=== PATIENT | male | born 1950 | race Caucasian/White ===

== ENCOUNTER 2018-01-07 21:01 | Inpatient (IN) | payer MEDICARE ==
[~2018-01-07 21:01] MED LIST: ISOVUE-370 76%-LOCM 1 ML ONE
--- NOTE | 2018-01-07 21:34 | RAD ---
UPRIGHT PORTABLE CHEST ONE VIEW: 01/07/18 HISTORY: 67-year-old male with history of weakness and fever, slipped off toilet. COMPARISON: 10/02/13. FINDINGS: There is some rotation to the left. Slight blunting to both costophrenic angles. No confluent pneumon ia or overt edema. IMPRESSION: Borderline sized heart with stable appearing blunted costophrenic angles. No confluent pneumonia, ove rt edema, or pleural effusion or other significant new process. POS: [facility]
[2018-01-07 21:53] LABS: Lymphocytes 15 % (21-51); MDiff Complete? YES; Mean Corpuscular HGB CONC 35.1 g/dL (32.0-36.0); Mean Corpuscular Hemoglobin 34.4 pg (27.0-31.0); Mean Corpuscular Volume 98.1 fL (78.0-98.0); Mean Platelet Volume 8.3 fL (7.4-10.4); Monocytes 10 % (0-10); Neutrophil 75 % (42-75); PLT Morphology Comment Appears Adequate; Platelet Count 181 thou/uL (130-400); RBC Distribution Width 12.5 % (11.5-14.5); Red Blood Cell (RBC) Count 4.64 mill/uL (4.70-6.10); White Blood Cell (WBC) Count 15.2 thou/uL (4.8-10.8)
[2018-01-07 21:55] LABS: ALT (SGPT) 24 U/L (8-55); AST (SGOT) 19 U/L (5-34); Albumin 3.8 g/dL (3.4-4.8); Alkaline Phosphatase 61 U/L (40-150); Anion Gap 17 mmol/L (10-20); BUN (Urea Nitrogen) 16 mg/dL (8.4-25.7); Bilirubin, Total 1.1 mg/dL (0.2-1.2); CK (CPK) 85 U/L (30-200); Calc. Creatinine Clearance 0 mL/min (70-130); Calcium 9.7 mg/dL (7.8-10.44); Carbon Dioxide 23 mmol/L (23-31); Chloride 100 mmol/L (98-107); Estimated GFR-MDRD 55; Globulin 3.3 g/dL (2.4-3.5); Glucose 207 mg/dL (80-115); Protein, Total 7.1 g/dL (5.8-8.1); Sodium 136 mmol/L (136-145)
[2018-01-07 22:05] LABS: CKMB 0.7 ng/mL (0-6.6); Troponin I Less than 0.010 ng/mL (< 0.028)
[2018-01-07] MEDS ORDERED: Piperacillin/Tazobactam 4.5 GM VIAL ONE (22:15)
[2018-01-07] MEDS ORDERED: Sodium Chloride 0.9% 100 ML ONE (22:15)
[2018-01-07] MEDS ORDERED: Fentanyl 100 MCG/2 ML VIAL ONE (22:15)
--- NOTE | 2018-01-07 22:56 | CT ---
CT ARTERIOGRAM CHEST WITH IV CONTRAST AND 3D MIP IMAGIN01/07/18 HISTORY: Chest pain. Dyspnea. FINDINGS: There is good contrast opacification of pulmonary arteries and thoracic aorta with normal branching o f the great vessels. Small amount of right pleural fluid with bibasilar atelectasis. No pneumothorax or lobar consolidation. Calcified mediastinal lymph nodes are consistent with healed granulomatous di sease. IMPRESSION: No CT evidence of pulmonary embolus. Small right pleural effusion. Cause is not apparent. POS: [facility]
--- NOTE | 2018-01-07 23:00 | CT ---
CT ABDOMEN AND PELVIS WITH IV CONTRAST 01/07/18 HISTORY: Abdominal pain. Fever. FINDINGS: No comparison. Small amount of right pleural fluid and bibasilar atelectasis are again demonstrated. Hyperdense stones within the dependent portion of the gallbladder lumen. Calcifications are present w ithin nondilated calyces of each kidney. There are two on the right measuring up to 0.5 cm greatest d iameter. At least four on the left measure up to 0.4 cm. No evidence of urinary tract obstruction. Diverticula arise from the colon without adjacent inflammation. Postoperative changes of the right co oscar are evident. No free air or free fluid. Urinary bladder is decompressed. IMPRESSION: Nonobstructing bilateral renal calculi. Diverticulosis. No evidence of diverticulitis. Postoperative changes of the colon. Cholelithiasis. Small right pleural effusion. Bibasilar lung atelectasis. POS: [facility]
[2018-01-07 23:32] LABS: Bilirubin Negative (Negative); Blood, Urine Negative (Negative); Clarity CLEAR (Clear); Glucose, Urine (Dipstick) 500 mg/dL (Negative); Leukocyte Negative (Negative); Nitrite Negative (Negative); Protein, Urine (Dipstick) 100 mg/dL (Neg-Trace); Specific Gravity, Urine 1.029 (1.002-1.036); Urobilinogen 0.2 mg/dL (0.2-1.0)
[2018-01-07 23:35] LABS: Bacteria/HPF None Seen HPF (None Seen); Hyaline Casts/LPF 7-10 HYALINE CAST LPF (0-3 Hyaline); RBC/HPF 0-3 HPF (0-3); Squamous Epithelial 0-3 HPF (0-3)
[2018-01-07 23:47] LABS: Oval Fat Bodies/HPF None Seen HPF (None Seen); Renal Epithelial None Seen HPF (0-3); Sperm/HPF None Seen HPF (None Seen); Transitional Epithelial NONE SEEN HPF (0-3); Trichomonas/HPF None Seen HPF (None Seen); Yeast-All Forms None Seen HPF (None Seen)
[2018-01-07] MEDS ORDERED: Vancomycin HCl 1.5 GM in Sodium Chloride 0.9% 250 ML 300 ML IVPB SCH (23:59)
[2018-01-08 00:23] LABS: Base Excess-Venous -1.5 mmol/L (0 (+/- 2.5)); CO2 Tension (PvCO2) 37.3 mmHg (41.0-51.0); Calcium, Ionized 1.15 mmol/L (1.12-1.32); Hemoglobin - Calc 16.1 g/dL (12.0-18.0); O2 Tension (PvO2) 79.7 mmHg (35.0-45.0); Potassium 3.7 mmol/L (3.4-4.7); T. Carbon Dioxide 24.1 mmol/L (1.0-85.0); pH (Venous) 7.397 (7.35-7.45); vO2 Saturation-calc 95.7 % (94-98)
[2018-01-08] MEDS ORDERED: Senokot 8.6 MG TAB PO PRN (00:59)
[2018-01-08] MEDS ORDERED: Ondansetron HCl/PF 4 MG/2 ML Vial IVP PRN (00:59)
[2018-01-08] MEDS ORDERED: Bisacodyl 5 MG TAB PO PRN (00:59)
[2018-01-08] MEDS ORDERED: Ondansetron ODT 4 MG TAB PO PRN (00:59)
[2018-01-08] MEDS ORDERED: Enoxaparin Sodium 40 MG/0.4 ML SYRINGE SC SCH (01:00)
[2018-01-08] MEDS ORDERED: Insulin Regular 300 UNITS/3 ML VIAL SC PRN (01:05)
[2018-01-08] MEDS ORDERED: Dextrose 5% in Water 1,000 ML IV PRN (01:05)
[2018-01-08] MEDS ORDERED: Dextrose 50% Abboject 50 ML SYRINGE SLOW IVP PRN (01:05)
[2018-01-08 01:15] LABS: Lactic Acid 3.1 mmol/L (0.5-2.2)
[2018-01-08 03:28] VITALS: BMI 31.4
[2018-01-08] MEDS: Sodium Chloride 0.9% 1,000 ML IV SCH ×3 (03:49→21:55)
[2018-01-08 04:14] LABS: Anion Gap 15 mmol/L (10-20); BUN (Urea Nitrogen) 17 mg/dL (8.4-25.7); Band 1 % (5-11); Calc. Creatinine Clearance 84 mL/min (70-130); Carbon Dioxide 22 mmol/L (23-31); Chloride 102 mmol/L (98-107); Estimated GFR-MDRD 60; Glucose 217 mg/dL (80-115); Hemoglobin 13.8 g/dL (14.0-18.0); Lymphocytes 16 % (21-51); MDiff Complete? YES; Mean Corpuscular HGB CONC 34.3 g/dL (32.0-36.0); Mean Corpuscular Hemoglobin 33.9 pg (27.0-31.0); Mean Corpuscular Volume 98.7 fL (78.0-98.0); Monocytes 6 % (0-10); Neutrophil 77 % (42-75); PLT Morphology Comment Appears Adequate; Platelet Count 149 thou/uL (130-400); RBC Distribution Width 12.6 % (11.5-14.5); Red Blood Cell (RBC) Count 4.08 mill/uL (4.70-6.10); Sodium 135 mmol/L (136-145); White Blood Cell (WBC) Count 17.3 thou/uL (4.8-10.8)
[2018-01-08] MEDS: Acetaminophen 325 MG TAB PO PRN ×4 (04:59→17:54)
[2018-01-08] MEDS: Piperacillin/Tazobactam 3.375 GM in Sodium Chloride 0.9% 100 ML IVPB SCH ×4 (05:00→20:26)
[2018-01-08] MEDS ORDERED: ISOVUE-370 76%-LOCM 1 ML ONE (07:35)
[2018-01-08] MEDS ORDERED: Gadobenate Dimeglumine 529 MG/1 ML (20ML VIAL) ONE (07:35)
--- NOTE | 2018-01-08 07:38 | HP ---
CHIEF COMPLAINT: Epigastric pain that radiates to the left upper quadrant and right upper quadrant and to the back. HISTORIAN: The patient's and patient. HISTORY OF PRESENT ILLNESS: This is a 67-year-old white male with past medical history of colon cancer in the past; diabetes mellitus, type 2; hypertension; hyperlipidemia; presenting with epigastric abdominal pain that radiates to the left upper quadrant and right upper quadrant and to his back. Per the patient, this pain has been going on for the past 2-3 days and that has progressively gotten worse and that prompted the ED visit. The patient states that he felt very weak due to the pain, and when he was in the bathroom, he syncopized due to weakness. EMS was called, and the patient was then brought to the emergency room. Upon further questioning, the patient stated that the pain was constant in nature, 8/10, and he took Advil to help with the pain, but it did not help or did not alleviate his pain. REVIEW OF SYSTEMS: Positive for pain, some shortness of breath, back pain, subjective fever; otherwise, as documented in the HPI. All other systems were reviewed and are negative. PAST MEDICAL HISTORY: Significant for diabetes mellitus, type 2; hypertension; colon CA; hyperlipidemia. PAST SURGICAL HISTORY: Hernia. SOCIAL HISTORY: Patient is a current tobacco smoker. He chews tobacco. Patient denies drinking alcohol. The patient denies any illicit drug use. FAMILY HISTORY: Reviewed and noncontributory. KNOWN ALLERGIES: No known drug allergies. MEDICATIONS: Patient takes, 1. Metformin 500. 2. Pravastatin 40 mg p.o. daily. 3. Sertraline 50 mg. 4. Amlodipine 5 mg. 5. Irbesartan 300 mg. PHYSICAL EXAMINATION: VITAL SIGNS: Currently, the patient's blood pressure is 137/74, pulse 116, respiratory rate of 22, O2 sat of 93 on 2-liter oxygen. GENERAL APPEARANCE: The patient appears very anxious, appears uncomfortable due to pain; however, the patient is not in any acute distress. HEENT: Normocephalic, atraumatic. Pupils are equal, round, and reactive to light. Extraocular movements are intact. No scleral icterus. NECK: Supple. Trachea midline. No tracheal deviations. LUNGS: Clear to auscultation bilaterally. No wheezing, no rhonchi, no rales appreciated. Patient does have discomfort with palpation under epigastric region, especially underneath the diaphragm. CARDIAC: Sinus tachycardic. ABDOMEN: The patient has diffuse tenderness to palpation, worse at the left lower quadrant and epigastric region. No rebound. Positive bowel sounds in all quadrants. BACK: The patient does have tenderness with palpation at the thoracic spine. EXTREMITIES: Upper extremities and lower extremities, 5/5 upper extremities strength and lower extremities strength. Good pulses. Capillary refills are less than 2 seconds. ED COURSE: The patient was given vancomycin IV, Zosyn IV, fentanyl for pain, and sodium chloride. IMAGING: CT of the abdomen and pelvis showed nonobstructing bilateral renal calculi, diverticulosis, no evidence of diverticulitis. Postoperative changes of the colon, cholelithiasis, small right pleural effusion, right basilar lung atelectasis. Chest x-ray, borderline-sized heart with stable-appearing blunted costophrenic angles. No confluent pneumonia or read edema or pleural effusion or other significant new process. CTA of the chest, no CT evidence of pulmonary embolism, small right pleural effusion. LABORATORY DATA: WBC in the ED 15.2, hemoglobin 16.0, hematocrit is 45.5, MCV 98.1, RDW is 12.5, lymphocytes 15, neutrophils 75. Sodium 135, potassium 4.0, chloride 104, carbon dioxide 22, BUN 17, creatinine 1.20, glucose 217. Lactic acid 3.6, AST 19, ALT 24, T bilirubin is 1.1. BNP 18. Urinalysis negative. ASSESSMENT AND PLAN: This is a 67-year-old male, being admitted for: 1. Abdominal pain, etiology unclear at this time. At this point, patient meets sepsis criteria. Patient has a lactic acid of 3.6, leukocytosis of 15.2, and the patient is tachycardic. We will start the patient on vancomycin, Zosyn , IV fluids. We will continue patient on these antibiotics, and we will follow up on morning laboratories and we will continue to work the patient up for source of infection. 2. Thoracic back pain. Upon further review of the abdominal CT, I see that patient did have some disk degenerative changes concerning for possible diskitis , probably causing the patient to have transverse myelitis. At this point, due to the concern, we have called the radiologist who read the image and discussed with the radiologist. Per radiologist, it does not seem that this is a chronic osteomyelitis. However, he feels like it is based on patient's clinical presentation with a possibility that this can be diskitis, but further imaging will be necessary to catch a possible diskitis. Also, due to the fact the patient has a history of colon carcinoma and a pleural effusion seen on imaging , it is a little concerning that the patient did have this 8/10 thoracic spine pain, and due to this, we will get an MRI of the thoracic spine to further examine the thoracic spine. It will be also important to at least get a thoracentesis to examine the pleural effusion to see if there is a possibility of exudative fluid concerning for possible malignancy, but we will continue to work the patient up and follow up on morning laboratories and cultures. 3. History of hypertension. We will continue to monitor the patient's blood pressure. Continue current management. 4. Diabetes mellitus. We will continue sliding scale. Continue to monitor the patient closely. 5. History of hyperlipidemia. We will continue the patient on his home medications. 6. Deep vein thrombosis and gastrointestinal prophylaxis. MTDD
[2018-01-08] MEDS ORDERED: Famotidine/PF 20 mg/2ml Vial SLOW IVP SCH (09:00)
[2018-01-08] MEDS ORDERED: Heparin 1,000 UNITS/ML VIAL ONE (09:00)
[2018-01-08] MEDS: Vancomycin HCl 1.25 GM in Sodium Chloride 0.9% 250 ML 250 ML IVPB SCH ×2 (12:37→23:57)
--- NOTE | 2018-01-08 12:40 | PDOC.EVN ---
Event Note - Event Note Event Note: Records reviewed. Patient examined. Has some TTP in LLQ with equivocal rebound. MRI of Tspine pending. Has chronic pain in this area. Unclear at this point if it a source of infection or if it is just more painful now because of underlying infection and fever. No other source identified. Concerned about possible early diverticulitis, but on appropriate abx.
--- NOTE | 2018-01-08 14:01 | MRI ---
MRI THORACIC SPINE WITH AND WITHOUT CONTRAST: DATE: 01/08/18. COMPARISON: None. HISTORY: Back pain, history of colon cancer, mid back pain radiating posteriorly. TECHNIQUE: Multiplanar, multisequence MR imaging of the thoracic spine is obtained with and without contrast. FINDINGS: The STIR imaging demonstrates no focal area of osseous marrow edema. There is abnormal increased STI R signal associated with the lateral paraspinal soft tissues at the axial level of the T4 through T6 vertebral bodies. No anterolisthesis or retrolisthesis is noted within the thoracic spine. C7-T1: No significant central canal or neural foraminal stenosis. T1-2: Mild bilateral facet hypertrophy with no significant central canal or neural foraminal stenosi s. T2-3: Mild bilateral facet hypertrophy with no significant central canal or neural foraminal stenosi s. T3-4: Mild bilateral facet hypertrophy with no significant central canal or neural foraminal stenosi s. T4-5: Mild facet hypertrophy with no significant central canal or neural foraminal stenosis. T5-6: No significant central canal or neural foraminal stenosis. T6-7: No significant central canal or neural foraminal stenosis. T7-8: Anterior osteophyte formation. No significant central canal or neural foraminal stenosis. T8-9: Anterior osteophyte formation on the right with no central canal or neural foraminal stenosis. T9-10: Anterior osteophyte formation on the right with no central canal or neural foraminal stenosis . T10-11: Anterior osteophyte formation on the right with no significant central canal or neural benjamin inal stenosis. T11-12: Bilateral facet hypertrophy noted, right greater than left. No significant central canal or neural foraminal stenosis. Anterior right-sided osteophyte formation. T12-L1: No significant central canal or neural foraminal stenosis. Postcontrast imaging demonstrates incompletely visualized abnormal soft tissue enhancement anterior t o the T4, T5, T6, and T7 vertebral bodies extending to the right of midline at the T4, T5, and T6 halie tebral bodies involving the anterior and right-sided paraspinal soft tissues. Exact etiology of thi s abnormal enhancing soft tissue is uncertain. Of note, no significant abnormality is seen involving the thoracic vertebral bodies themselves or the intervertebral disks and, thus, this process appears centered within and confined to the paraspinal soft tissues. There is no focal area of signal abnor mality within the thoracic cord. IMPRESSION: Nonspecific abnormal anterior and right lateral paraspinal soft tissue signal intensity from T4 throu gh T7 with findings suggesting edema and enhancement. No convincing evidence for associated diskitis . This is suspicious for an inflammatory/infectious process. Malignancy cannot be fully excluded, b ut appears much less likely secondary to the infiltrative nature of this abnormality. Clinical corre lation is essential. Paraspinal phlegmon is the primary consideration. A degree of surface osteomye litis cannot be excluded. Short-term followup imaging following treatment advised. CODE T POS: [facility]
[2018-01-08] MEDS ORDERED: Ibuprofen 600 MG TAB PO PRN (19:54)
[2018-01-08] MEDS: Famotidine 20 MG TAB PO SCH (20:25)
[2018-01-08] MEDS: Ibuprofen 800 MG TAB PO PRN (20:25)
[2018-01-08] MEDS: Pravastatin Sodium 40 MG TAB PO SCH (20:25)
[2018-01-09] MEDS: Piperacillin/Tazobactam 3.375 GM in Sodium Chloride 0.9% 100 ML IVPB SCH ×2 (03:07→09:17)
[2018-01-09 05:00] LABS: Anion Gap 12 mmol/L (10-20); BUN (Urea Nitrogen) 12 mg/dL (8.4-25.7); Calc. Creatinine Clearance 105 mL/min (70-130); Calcium 8.5 mg/dL (7.8-10.44); Carbon Dioxide 22 mmol/L (23-31); Chloride 102 mmol/L (98-107); Estimated GFR-MDRD 78; Glucose 173 mg/dL (80-115); Potassium 3.5 mmol/L (3.5-5.1); Sodium 132 mmol/L (136-145)
[2018-01-09 05:07] LABS: #Lymphocytes 1.1 thou/uL (1.20-3.40); #Monocytes 0.3 thou/uL (0.11-0.59); #Neutrophils 5.5 thou/uL (1.40-6.50); %Basophils 0.1 % (0.0-1.0); %Eosinophils 0.2 % (0.0-10.0); %Lymphocytes 16.1 % (21.0-51.0); %Monocytes 4.6 % (0.0-10.0); Hemoglobin 12.5 g/dL (14.0-18.0); Mean Corpuscular HGB CONC 33.9 g/dL (32.0-36.0); Mean Corpuscular Hemoglobin 33.5 pg (27.0-31.0); Mean Corpuscular Volume 98.9 fL (78.0-98.0); Platelet Count 106 thou/uL (130-400); RBC Distribution Width 12.6 % (11.5-14.5); Red Blood Cell (RBC) Count 3.71 mill/uL (4.70-6.10); White Blood Cell (WBC) Count 6.9 thou/uL (4.8-10.8)
[2018-01-09] MEDS: HumaLOG 300 UNITS/3 ML VIAL SC PRN ×2 (05:48→17:13)
[2018-01-09] MEDS: Ibuprofen 800 MG TAB PO PRN ×2 (05:48→15:15)
[2018-01-09] MEDS: Famotidine 20 MG TAB PO SCH ×2 (08:02→20:22)
--- NOTE | 2018-01-09 10:28 | PDOC.PN ---
- Subjective Encounter Start Date: 01/09/18 Encounter Start Time: 10:26 Feeling better today. Says his abdominal pain has improved. Denies skin lesions, cuts, rashes. Back pain is improved. Positional like it has been prior to the fever. - Objective Resuscitation Status: Resuscitation Status FULL:Full Resuscitation MAR Reviewed: Yes Vital Signs & Weight: Vital Signs (12 hours) Temp Pulse Resp BP Pulse Ox 01/09/18 08:00 99.0 F 72 20 94 L 01/09/18 07:25 99.0 F 72 20 107/66 94 L 01/09/18 04:01 100.3 F H 83 18 111/72 91 L 01/09/18 00:03 99.1 F 72 18 137/78 93 L Weight Weight 224 lb 14.4 oz I&O: 01/08/18 01/09/18 01/10/18 06:59 06:59 06:59 Intake Total 1850 Balance 1850 Result Diagrams: 01/09/18 04:26 01/09/18 04:26 Additional Labs: Accuchecks 01/09/18 01/08/18 01/08/18 04:05 19:27 16:21 POC Glucose 166 H 187 H 165 H 01/08/18 12:39 POC Glucose 183 H Phys Exam - Physical Examination Constitutional: NAD HEENT: PERRLA, moist MMs, oral pharynx no lesions Edentulous Neck: no nodes, no JVD, supple Respiratory: no wheezing, no rales, no rhonchi, clear to auscultation bilateral Cardiovascular: RRR, no significant murmur, no rub Gastrointestinal: soft, no distention, positive bowel sounds Modest LLQ TTP, no rebound. Musculoskeletal: no edema, pulses present Neurological: non-focal Psychiatric: normal affect Skin: no rash Deviation from normal: No skin lesions identified, including close inspection of the feet. Dx/Plan - Plan * .
[2018-01-09 11:47] LABS: Vancomycin, Trough 8.7 ug/mL
[2018-01-09] MEDS ORDERED: Vancomycin HCl 1.75 GM in Sodium Chloride 0.9% 500 ML IVPB SCH (12:00)
[2018-01-09] MEDS: Sodium Chloride 0.9% 1,000 ML IV SCH ×2 (12:15→12:19)
[2018-01-09] MEDS: CEFAZOLIN/Water 2 GM/20 ML SYRINGE SLOW IVP SCH ×2 (15:18→23:28)
[2018-01-09] MEDS: Acetaminophen 325 MG TAB PO PRN (17:12)
--- NOTE | 2018-01-09 17:49 | CON ---
DATE OF CONSULTATION: 01/09/2018 REASON FOR CONSULTATION: Bacteremia with spinal lesion. HISTORY OF PRESENT ILLNESS: A 67-year-old with history of type 2 diabetes, colon cancer in remission after resection and chronic smoking who developed pain in the back, mid spine area radiating around towards the epigastric region for the past month. The pain has gotten worse for the past few days an d eventually ended up in the emergency room. A little bit of weakness and near syncopal event. The patient had a thoracic spine MRI yesterday, which showed abnormal anterior and right lateral paraspin al soft tissue signal intensity from T4-T7 with edema and enhancement, possible osteomyelitis as well and now we have 2/2 sets of blood cultures positive for methicillin-sensitive Staphylococcus aureus. The patient is feeling better. Pain is a little bit reduced. Still with radiculopathic extension towards the anterior aspect of the epigastrium, right and left side. No headaches, visual symptoms, sore throat, odynophagia, or dysphagia. No neck pain. No low back pain, no dyspnea, no chest pain, no abdominal pain or diarrhea except for the epigastric radiation from the radiculopathy. Voiding wi thout difficulty. No joint symptoms. PAST MEDICAL HISTORY: Type 2 diabetes, hypertension, colon cancer in remission after resection, hype rlipidemia. PAST SURGICAL HISTORY: Herniorrhaphy and partial colectomy. SOCIAL HISTORY: Current smoker. Lives in [place]. . FAMILY HISTORY: Noncontributory. ALLERGIES: None. CURRENT MEDICATIONS: Tylenol, Dulcolax, dextrose, Pepcid, glucagon, Motrin, insulin, Avapro, lactulo se, Zofran, Zosyn, and vancomycin. PHYSICAL EXAMINATION: VITAL SIGNS: T-max 102, currently 97.9, blood pressure 118/73, pulse 72, respirations 18. SKIN: Unremarkable. No lymphadenopathy. HEENT: Ocular movements conjugate. Oral cavity with no kenaitze teeth in place, normal mucosa. NECK: Supple, jugular vein distention, some pain in the mid thoracic area posteriorly. LUNGS: Symmetric clear breath sounds. HEART: S1, S2, regular rate without murmurs. ABDOMEN: Soft, not distended or tender. No ascites. No bladder distention. EXTREMITIES: Moves all extremities equally. Plantar responses are flexure. NEUROLOGIC: Cognitive function appears to be intact. LABORATORY DATA: White cell count 15.2 down to 6.9, hemoglobin 12.5, platelets 106,000 and 79% neutr ophils. pH 7.3, pCO2 37, pO2 79. Sodium 132, creatinine 0.96. Liver profile normal. Albumin 3.8. Urinalysis with 4-6 wbc's, protein 100. Microbiology as noted above with MSSA in 2 sets of blood cu ltures. Imaging study noted. Abdomen and pelvis CT from 01/07/2018, some renal calculi, nonobstruct isiah, small right pleural effusion and a chest CT angio, no pulmonary embolism noted. ASSESSMENT: Type 2 diabetes, prior colon cancer in remission after resection and now with evidence o f spinal infection. He must have diskitis and osteomyelitis with paraspinal extension due to methici llin-sensitive Staph aureus. He is bacteremic as well. Endocarditis is not ruled out and will go ah ead and check his echocardiogram, switch him to cefazolin. PICC line placement and plan outpatient t reatment through my infusion clinic.
[2018-01-09] MEDS: Pravastatin Sodium 40 MG TAB PO SCH (20:22)
[2018-01-09] MEDS: Saccharomyces boulardii 250 MG CAP PO SCH (20:22)
[2018-01-10] MEDS: CEFAZOLIN/Water 2 GM/20 ML SYRINGE SLOW IVP SCH ×4 (00:05→23:49)
[2018-01-10] MEDS: Acetaminophen 325 MG TAB PO PRN (05:50)
[2018-01-10] MEDS: HumaLOG 300 UNITS/3 ML VIAL SC PRN ×3 (05:53→16:56)
[2018-01-10] MEDS: Ibuprofen 800 MG TAB PO PRN (07:49)
[2018-01-10] MEDS: Saccharomyces boulardii 250 MG CAP PO SCH ×2 (07:50→21:57)
[2018-01-10] MEDS: Famotidine 20 MG TAB PO SCH ×2 (07:50→21:57)
[2018-01-10] MEDS ORDERED: oxyCODONE 5 MG TAB PO PRN (09:16)
[2018-01-10] MEDS: Sodium Chloride 0.9% 1,000 ML IV SCH (09:58)
--- NOTE | 2018-01-10 16:07 | PDOC.PN ---
- Subjective Encounter Start Date: 01/10/18 Encounter Start Time: 10:30 Subjective: pt up in bed complains of pain in his upper back area - Objective Resuscitation Status: Resuscitation Status FULL:Full Resuscitation Vital Signs & Weight: Vital Signs (12 hours) Temp Pulse Resp BP Pulse Ox 01/10/18 11:06 97.6 F 63 18 129/90 94 L 01/10/18 08:00 98.3 F 81 16 96 01/10/18 07:14 98.3 F 81 16 154/87 H 96 Weight Weight 224 lb 14.4 oz I&O: 01/09/18 01/10/18 01/11/18 06:59 06:59 06:59 Intake Total 1850 1080 Balance 1850 1080 Result Diagrams: 01/09/18 04:26 01/09/18 04:26 Additional Labs: Accuchecks 01/10/18 01/10/18 01/09/18 11:08 04:06 19:37 POC Glucose 191 H 157 H 235 H 01/09/18 16:36 POC Glucose 210 H Phys Exam - Physical Examination Neck: no nodes, no JVD, supple, full ROM Respiratory: no wheezing, no rales, no rhonchi, wheezing present, clear to auscultation bilateral Cardiovascular: RRR, no significant murmur, no rub, gallop, irregular Gastrointestinal: soft, non-tender, no distention, positive bowel sounds mild upper back pain Dx/Plan (1) Diskitis Code(s): M46.40 - DISCITIS, UNSPECIFIED, SITE UNSPECIFIED Status: Acute (2) Bacteremia Code(s): R78.81 - BACTEREMIA Status: Acute (3) Diabetes Code(s): E11.9 - TYPE 2 DIABETES MELLITUS WITHOUT COMPLICATIONS Status: Acute - Plan pt on abx mssa -: will recheck blood cx -: echo no lesion noted but TANJA would be a better test -: will start pt on pain meds. pt to go for picc today * . Review of Systems - Review of Systems Respiratory: negative: Cough, Dry, Shortness of Breath, Hemoptysis, SOB with Excertion, Pleuritic Pain, Sputum, Wheezing Cardiovascular: negative: chest pain, palpitations, orthopnea, paroxysmal nocturnal dyspnea, edema, light headedness, other Gastrointestinal: negative: Nausea, Vomiting, Abdominal Pain, Diarrhea, Constipation, Melena, Hematochezia, Other - Medications/Allergies Allergies/Adverse Reactions: Allergies Allergy/AdvReac Type Severity Reaction Status Date / Time No Known Drug Allergies Allergy Verified 09/29/13 15:43 Medications: Current Medications Acetaminophen (Tylenol) 650 mg PO Q4H PRN PRN Reason: Headache/Fever or Pain Last Admin: 01/10/18 05:50 Dose: 650 mg Acetaminophen/Codeine Phosphate (Tylenol #3) 1 tab PO Q6H PRN PRN Reason: Mild Pain (1-3) Bisacodyl (Dulcolax) 10 mg PO DAILYPRN PRN PRN Reason: Constipation Cefazolin Sodium (Ancef) 2 gm SLOW IVP 0800,1600,2359 [facility] Last Admin: 01/10/18 07:49 Dose: 2 gm Dextrose/Water (Dextrose 50%) 25 gm SLOW IVP PRN PRN PRN Reason: Hypoglycemia Famotidine (Pepcid) 20 mg PO BID [facility] Last Admin: 01/10/18 07:50 Dose: 20 mg Glucagon (Glucagon) 1 mg IM PRN PRN PRN Reason: Hypoglycemia Dextrose/Water (D5w) 1,000 mls @ 0 mls/hr IV .Q0M PRN PRN Reason: Hypoglycemia Ibuprofen (Motrin) 800 mg PO Q8H PRN PRN Reason: Moderate Pain (4-6) Last Admin: 01/10/18 07:49 Dose: 800 mg Insulin Human Lispro (Humalog) 0 units SC .MILD SLIDING SCALE PRN PRN Reason: Mild Correctional Scale Last Admin: 01/10/18 12:05 Dose: 2 unit Insulin Human Regular (Humulin R) 0 units SC .MILD SLIDING SCALE PRN PRN Reason: Mild Correctional Scale Irbesartan (Avapro) 300 mg PO DAILY [facility] Last Admin: 01/10/18 07:49 Dose: 300 mg Lactulose (Lactulose) 20 gm PO DAILYPRN PRN PRN Reason: Constipation Ondansetron HCl (Zofran Odt) 4 mg PO Q6H PRN PRN Reason: Nausea/Vomiting Ondansetron HCl (Zofran) 4 mg IVP Q6H PRN PRN Reason: Nausea/Vomiting Pravastatin Sodium (Pravachol) 40 mg PO [facility] Last Admin: 01/09/18 20:22 Dose: 40 mg Saccharomyces Boulardii (Florastor) 250 mg PO BID [facility] Last Admin: 01/10/18 07:50 Dose: 250 mg Senna (Senokot) 2 tab PO HSPRN PRN PRN Reason: Constipation Sodium Chloride (Flush - Normal Saline) 10 ml IVF Q12HR [facility] Last Admin: 01/10/18 07:50 Dose: Not Given Sodium Chloride (Flush - Normal Saline) 10 ml IVF PRN PRN PRN Reason: Saline Flush
[2018-01-10] MEDS: Acetaminophen/Codeine 30-300mg Tablet PO PRN ×2 (17:44→23:49)
[2018-01-10] MEDS: metFORMIN 500 MG TAB PO SCH (21:56)
[2018-01-10] MEDS: Pravastatin Sodium 40 MG TAB PO SCH (21:57)
[2018-01-11] MEDS: HumaLOG 300 UNITS/3 ML VIAL SC PRN (05:28)
[2018-01-11] MEDS: Saccharomyces boulardii 250 MG CAP PO SCH (08:55)
[2018-01-11] MEDS: Famotidine 20 MG TAB PO SCH (08:55)
[2018-01-11] MEDS: CEFAZOLIN/Water 2 GM/20 ML SYRINGE SLOW IVP SCH (08:55)
[2018-01-11] MEDS: metFORMIN 500 MG TAB PO SCH (08:55)
[2018-01-11] MEDS ORDERED: Amlodipine 5 MG TAB PO SCH (09:00)
--- NOTE | 2018-01-11 12:27 | SPC ---
LEFT UPPER EXTREMITY PICC PLACEMENT: History: Infection. Need for long-term antibiotics. FINDINGS: After explaining the procedure and answering all questions, left upper extremity was prepped and drap ed in the usual sterile fashion. Sterile technique, buffered local anesthesia, sonographic guidance, and 22 gauge needle were used to carefully access the left basilic vein. Standard technique was then used to place a tip of a 5 [place] single lumen PICC so that the tip lies at the level of the cavoatri al junction. Catheter was flushed and secured externally. Patient tolerated the procedure well and wa s returned in unchanged condition. Fluoro time 0 seconds. IMPRESSION: Left upper extremity PICC is ready for use. POS: [facility]
[2018-01-11 13:52] VITALS: BP 155/85; TEMP 97.9
--- NOTE | 2018-01-12 02:01 | DIS ---
DATE OF ADMISSION: 01/08/2018 DATE OF DISCHARGE: 01/11/2018 DISCHARGE DIAGNOSES: 1. Diskitis. 2. Bacteremia. 3. Diabetes. HOSPITAL COURSE: Patient is a very pleasant 67-year-old male who initially presented to the hospital with complaints of epigastric pain that radiates to his left upper quadrant and right upper quadrant and the back. Given patient's history of colon cancer, patient underwent a CT abdomen and pelvis wh ich showed nonobstructing bilateral renal calculi and he also had a CT of the chest did not indicate any pulmonary embolism. At that time, patient was put on broad-spectrum antibiotics; however, he con tinued to have thoracic back pain, which he did have CT of the abdomen indicated possible concerns fo r diskitis. He was put on broad-spectrum antibiotics and also an MRI was ordered. Patient did have a thoracic MRI spine, which indicated nonspecific abnormal anterior and right lateral paraspinal soft tissue signal intensity from T4-T7 findings suggestion of edema and enhancement. There was a suspic ion for inflammatory infectious process; however, there is a concern for malignancy that could not be completely ruled out. Also, osteomyelitis could not be ruled out. At this time, Infectious Disease was consulted for antibiotic management. Patient did have his blood cultures including his urine cu ltures, which was positive for Staphylococcus aureus which was MSSA, methicillin-sensitive. Patient underwent a PICC line. He also had an echocardiogram which indicated an EF of 55%-60% with no vegeta tions that were noted; however, this was only a transthoracic not a TANJA. He did have some mildly enl arged right ventricle. Patient again will be discharged home. He will follow up with his primary ca re doctor and also Dr. Stone and also will require reimaging in the future. Patient and his edu cated that if he continues to have any worsening pain, any weakness of the upper extremity or lower e xtremity or any tingling sensation, he is to come to the ER for further evaluation. PHYSICAL EXAMINATION: VITAL SIGNS: As of the following 97.9, 69, 16, 94% room air, 155/85. GENERAL: He is awake, alert, oriented x3, does not appear in any distress. CARDIOVASCULAR: S1, S2 present. No murmurs, rubs, or gallops. ABDOMEN: Soft, nontender. Bowel sounds are present x2. EXTREMITIES: No edema. He does have a PICC line placed. He will be discharged home. DISCHARGE MEDICATIONS: Metformin 500 mg t.i.d., sertraline 50 mg daily, Norvasc 5 mg daily, Advair, irbesartan mg daily, pravastatin 40 mg at bedtime, Pepcid 20 mg b.i.d. He also is on Ancef, wh ich has been scheduled by Dr. Stone as an outpatient. CONSULTANTS: Infectious Disease.
== END 2018-01-11 14:56 | disposition home or self-care (01) | DRG 872 ==
LOC: ERS 21:01 → T4-A 01-08 03:00
PROVIDERS: ADMIT Internal Medicine; ATTEND Internal Medicine
PROC: 02HV33Z Insertion of Infusion Device into Superior Vena Cava, Percutaneous Approach (ICD-10-PCS; principal; 2018-01-11)
DX: A41.01 Sepsis due to Methicillin susceptible Staphylococcus aureus (principal); J90 Pleural effusion, not elsewhere classified; M46.44 Discitis, unspecified, thoracic region; I10 Essential (primary) hypertension; E11.9 Type 2 diabetes mellitus without complications; R10.13 Epigastric pain; E78.5 Hyperlipidemia, unspecified; Z85.038 Personal history of other malignant neoplasm of large intestine; F17.210 Nicotine dependence, cigarettes, uncomplicated
CPT/HCPCS: 36415; 36416; 36569; 71045; 71275; 72157; 74177; 80048; 80053; 80202; 81003; 81015; 82330; 82435; 82553; 82803; 83605; 83690; 83880; 84132; 84295; 84484; 85014; 85025; 87040; 87077; 87086; 87149; 87186; 93005; 93306; 96361; 96365; 96366; 96367; 96375; 99406; A4216; C1751; J1644; J2543; J3010; J3370; J7050; S0028

== ENCOUNTER 2018-04-18 09:17 | Outpatient (CLI) | payer MEDICARE ==
--- NOTE | 2018-04-18 12:47 | MRI ---
PRE AND POSTCONTRAST ENHANCED MRI THORACIC SPINE: Date: 04/18/18 COMPARISON: 01/08/18. FINDINGS: Multiplanar, multisequence pre and postcontrast enhanced MRI thoracic spine demonstrate areas of sign al abnormality in the inferior aspect of the T5 vertebral body. There is some slight collapse of the inferior aspect of T5 vertebral body as well. There is some increased signal in the T5-6 intervertebr al disc space. This is concerning for possible diskitis. There is some signal abnormality seen in the superior end plate of T6 which may represent osteomyelitis at this level as well. There is also sign al abnormality seen in the T7-8 intervertebral disc space. This may also present diskitis. The degree of paravertebral signal change seen anterior to the T3-T7 vertebral levels previously has not significantly changed. Extensive right paravertebral soft tissue enhancement remains. No definite evidence of abscess seen. IMPRESSION: Increasing T5-6 end plate signal changes with some enhancement, including some inflammatory change wi thin the intervertebral disc. These findings are concerning for T5-6 diskitis and osteomyelitis. Both T2 signal changes and enhancement in the T3-T7 prevertebral space has not changed . POS: [facility]
== END 2018-04-18 09:18 | disposition home or self-care (01) ==
LOC: BICMRI 09:17
PROVIDERS: ATTEND Internal Medicine Infectious Disease
DX: M46.24 Osteomyelitis of vertebra, thoracic region (principal)
CPT/HCPCS: 72157; 82565

== ENCOUNTER 2018-06-23 12:23 | Outpatient (CLI) | payer MEDICARE ==
--- NOTE | 2018-06-23 13:57 | RAD ---
ABDOMEN 2 VIEWS: Date: 06/23/18 HISTORY: Left lower quadrant pain. COMPARISON: None. FINDINGS: Nonspecific bowel gas pattern. No differential air fluid levels. No pneumoperitoneum. There is a calcification projecting over the right renal silhouette measuring 0.3 cm. There is a calc ification projecting over the mid portion of the left renal silhouette measuring 0.4 cm. There is a c alcification along the inferior pole of the left renal silhouette measuring 0.6 cm. No calcification along the expected course of either ureter. Degenerative changes in the lumbar spine are noted. IMPRESSION: Bilateral intrarenal calculi are suspected. If there is concern for obstructive uropathy, consider re nal stone CT. POS: [facility]
== END 2018-06-23 12:24 | disposition home or self-care (01) ==
LOC: SCSRAD 12:23
PROVIDERS: ATTEND Family Medicine
DX: R10.32 Left lower quadrant pain (principal)
CPT/HCPCS: 74019

== ENCOUNTER 2019-11-08 15:08 | Emergency (ER) | payer MEDICARE ==
--- NOTE | 2019-11-08 16:09 | RAD ---
Exam: Chest one view HISTORY:Dizziness. Comparison: 01/07/2018 FINDINGS: Cardiac silhouette: Normal Aorta: Unremarkable Pulmonary vessels: Normal Costophrenic angles: Clear LUNGS: No masses or consolidation. Bilateral nipple shadows are identified. Pneumothorax: None Osseous abnormalities: None IMPRESSION: No acute cardiopulmonary process.
[2019-11-08 16:51] LABS: #Basophils 0.1 thou/uL (0.0-0.2); #Eosinphils 0.2 thou/uL (0.0-0.7); #Lymphocytes 2.9 thou/uL (1.20-3.40); #Monocytes 0.6 thou/uL (0.11-0.59); #Neutrophils 4.7 thou/uL (1.40-6.50); %Basophils 1.1 % (0.0-1.0); %Eosinophils 2.1 % (0.0-10.0); %Lymphocytes 33.9 % (21.0-51.0); %Monocytes 7.1 % (0.0-10.0); Hemoglobin 15.6 g/dL (14.0-18.0); Mean Corpuscular Hemoglobin 32.9 pg (27.0-31.0); Mean Corpuscular Volume 99.7 fL (78.0-98.0); Mean Platelet Volume 8.7 fL (7.4-10.4); Platelet Count 170 thou/uL (130-400); RBC Distribution Width 13.2 % (11.5-14.5); Red Blood Cell (RBC) Count 4.75 mill/uL (4.70-6.10); White Blood Cell (WBC) Count 8.4 thou/uL (4.8-10.8)
--- NOTE | 2019-11-08 17:00 | CT ---
CT BRAIN NONCONTRAST: DATE: 11/08/2019 HISTORY: 69-year-old male with altered mental status and dizziness FINDINGS: There is no evidence of acute intra-axial or extra-axial hemorrhage. There is no midline shift or any other mass effect. There is no extra-axial fluid collection. There is no evidence of obstructive hydrocephalus. Calvarium is intact. IMPRESSION: No acute intracranial findings.
[2019-11-08 17:17] LABS: ALT (SGPT) 24 U/L (8-55); AST (SGOT) 25 U/L (5-34); Albumin 4.9 g/dL (3.4-4.8); Alkaline Phosphatase 56 U/L (40-110); Anion Gap 16 mmol/L (10-20); BUN (Urea Nitrogen) 35 mg/dL (8.4-25.7); Bilirubin, Total 0.4 mg/dL (0.2-1.2); CK (CPK) 94 U/L (30-200); Calc. Creatinine Clearance 0 mL/min (70-130); Calcium 10.8 mg/dL (7.8-10.44); Carbon Dioxide 24 mmol/L (23-31); Chloride 98 mmol/L (98-107); Estimated GFR-MDRD 45; Globulin 3.4 g/dL (2.4-3.5); Glucose 73 mg/dL (83-110); Lipase 75 U/L (8-78); Potassium 4.4 mmol/L (3.5-5.1); Protein, Total 8.3 g/dL (5.8-8.1); Sodium 134 mmol/L (136-145)
[2019-11-08 19:30] LABS: Bilirubin Negative (Negative); Blood, Urine Negative (Negative); Clarity Clear (Clear); Glucose, Urine (Dipstick) 50 mg/dL (Negative); Ketone, Urine Negative (Negative); Leukocyte Negative Leu/uL (Negative); Nitrite Negative (Negative); Protein, Urine (Dipstick) Negative (Neg-Trace); Specific Gravity, Urine 1.014 (1.002-1.036); Urobilinogen Normal mg/dL (Less than 2); pH, Urine 5.5 (5.0-9.0)
== END 2019-11-08 18:56 | disposition home or self-care (01) ==
LOC: ERS 15:08
DX: E86.0 Dehydration (principal); F17.220 Nicotine dependence, chewing tobacco, uncomplicated; E11.9 Type 2 diabetes mellitus without complications; E78.5 Hyperlipidemia, unspecified; E78.00 Pure hypercholesterolemia, unspecified; I10 Essential (primary) hypertension; Z79.82 Long term (current) use of aspirin; Z79.899 Other long term (current) drug therapy; Z79.84 Long term (current) use of oral hypoglycemic drugs
CPT/HCPCS: 70450; 71045; 80053; 81003; 82550; 83690; 83735; 84484; 85025; 85379; 93005; 94760; 96360

== ENCOUNTER 2020-01-02 22:18 | Emergency (ER) | payer MEDICARE ==
[2020-01-02] MEDS ORDERED: Ketorolac Tromethamine 30 MG/ML VIAL ONE (22:43)
--- NOTE | 2020-01-02 22:59 | RAD ---
Exam:Left hip 2 views HISTORY: Pain x1 week. COMPARISON: None FINDINGS: No significant loss of joint space height. Contour of the femoral head is maintained. No fr acture. Visualized bony pelvis and sacrum are intact. IMPRESSION: No fracture or dislocation. No significant degenerative change.
== END 2020-01-02 23:15 | disposition home or self-care (01) ==
LOC: ERS 22:18
DX: S76.012A Strain of muscle, fascia and tendon of left hip, initial encounter (principal); E11.9 Type 2 diabetes mellitus without complications; E78.5 Hyperlipidemia, unspecified; E78.00 Pure hypercholesterolemia, unspecified; I10 Essential (primary) hypertension; F17.220 Nicotine dependence, chewing tobacco, uncomplicated; Z79.84 Long term (current) use of oral hypoglycemic drugs; Z79.82 Long term (current) use of aspirin; Z79.899 Other long term (current) drug therapy
CPT/HCPCS: 96372; J1885

== ENCOUNTER 2020-02-07 16:22 | Inpatient (IN) | payer MEDICARE, OTHER ==
[2020-02-07] MEDS ORDERED: traMADol HCl 50 MG TAB PO PRN (17:53)
[2020-02-07] MEDS ORDERED: Acetaminophen 325 MG TAB PO PRN (17:53)
[2020-02-07] MEDS ORDERED: HYDROcodone/Acetaminophen 5/325 mg Tablet PO PRN (17:54)
[2020-02-07] MEDS ORDERED: Acetaminophen/Codeine 30-300mg Tablet PO PRN (17:54)
[2020-02-07 19:47] VITALS: BMI 26.4
[2020-02-07] MEDS: Dexamethasone 4 MG TAB PO SCH (20:25)
[2020-02-08] MEDS: Dexamethasone 4 MG TAB PO SCH ×4 (00:49→20:13)
[2020-02-08 08:03] LABS: Anion Gap 17 mmol/L (10-20); BUN (Urea Nitrogen) 17 mg/dL (8.4-25.7); Calc. Creatinine Clearance 100 mL/min (70-130); Carbon Dioxide 20 mmol/L (23-31); Chloride 103 mmol/L (98-107); Estimated GFR-MDRD Greater than 90; Glucose 188 mg/dL (83-110); Potassium 4.5 mmol/L (3.5-5.1); Sodium 135 mmol/L (136-145)
[2020-02-08 09:28] LABS: Band 1 % (5-11); Hemoglobin 17.3 g/dL (14.0-18.0); Lymphocytes 15 % (21-51); MDiff Complete? YES; Mean Corpuscular HGB CONC 30.9 g/dL (32.0-36.0); Mean Corpuscular Hemoglobin 30.6 pg (27.0-31.0); Mean Platelet Volume 9.8 fL (7.4-10.4); Monocytes 1 % (0-10); Neutrophil 83 % (42-75); Platelet Count 120 thou/uL (130-400); Platelet Morphology Comment Appears Decreased; RBC Distribution Width 14.5 % (11.5-14.5); Red Blood Cell (RBC) Count 5.66 mill/uL (4.70-6.10); Target Cells SLIGHT = 2-5 cells (100X) (0-1/hpf); White Blood Cell (WBC) Count 9.5 thou/uL (4.8-10.8)
--- NOTE | 2020-02-08 10:43 | PRG ---
DATE OF SERVICE: 02/08/2020 Mr. Peters is a very pleasant 69-year-old gentleman, who has had low back and episodes of left leg pain and in L4 and L5 distribution, but also need buckling of the knee. He has mild weakness in his left quadriceps. MRI demonstrates severe stenosis from L3 through L5 with a left-sided disk extrusion compressing the traversing left L4 nerve root and extending into the foramen of the left L4. I have recommended surgery. Surgery is an L3 through L5 laminectomy, partial facetectomy, foraminotomy, left-sided diskectomy, and left L4-L5 transfacet diskectomy. They would like to pursue surgery. Informed consent, goals, indications, risks, alternatives, and complications were discussed in detail with the patient. He wished that we proceed and discussion. This is a 50-minute initial hospital visit note, in which 50 minutes were spent reviewing the imaging, record evaluation, examination of patient, and formulation of plan. Greater than 50% time was spent in counseling. Job ID: [id number]
[2020-02-08 11:14] LABS: INR-International Normal Ratio 0.9; PTT 28.1 sec (22.9-36.1)
[2020-02-08 12:44] LABS: SARS-CoV-2 MS2 Positive; SARS-CoV-2 N Gene Negative; SARS-CoV-2 S Gene Negative; SARS-CoV-2 by NAA Not Detected (NotDetected); SARS-CoV-2 orf1ab Negative
--- NOTE | 2020-02-08 18:00 | EKG ---
Test Reason : Blood Pressure : / mmHG Vent. Rate : 076 BPM Atrial Rate : 076 BPM P-R Int : 170 ms QRS Dur : 146 ms QT Int : 402 ms P-R-T Axes : 045 007 013 degrees QTc Int : 452 ms Normal sinus rhythm Right bundle branch block Abnormal ECG No previous ECGs available Confirmed by DR. Milad LYNCH ([id number]) on 02/08/2020 6:00:44 PM Referred By: MARIMAR Confirmed By:DR. Milad LYNCH
[2020-02-09] MEDS: Dexamethasone 4 MG TAB PO SCH ×4 (02:19→21:41)
[2020-02-09] MEDS ORDERED: Metoprolol Tartrate 5 MG/5 ML VIAL ONE (11:01)
[2020-02-09] MEDS ORDERED: PROPOFOL 200 MG/20 ML VIAL ONE (11:01)
[2020-02-09] MEDS ORDERED: Glycopyrrolate 0.2 MG/ML 5 ML SYRINGE ONE (11:01)
[2020-02-09] MEDS ORDERED: Dexamethasone 20 MG/5 ML VIAL ONE ×2 (11:01)
[2020-02-09] MEDS ORDERED: EPHEDRINE 25 MG/5 ML SYRINGE ONE (11:01)
[2020-02-09] MEDS ORDERED: Lidocaine 1% PF 5 ML VIAL ONE (11:01)
[2020-02-09] MEDS ORDERED: Rocuronium Bromide 10 MG/ML (10ML VIAL) ONE (11:01)
[2020-02-09] MEDS ORDERED: Ondansetron PF 4 MG/2 ML Vial ONE (11:01)
[2020-02-09] MEDS ORDERED: Thrombin 5000 UNITS/5 ML VIAL ONE (13:08)
--- NOTE | 2020-02-09 13:20 | PRG ---
DATE OF SERVICE: 02/09/2020 I spoke with Mr. Peters and his again today. The plan is for L3 to L5 laminectomy and partial facetectomy, left-sided paracentral diskectomy with transfacet approach for left L4 decompression in the foramen and extraforaminal due to lateral and far lateral disk extrusion with a left L4-L5 segment. Job ID: [id number]
[2020-02-09] MEDS ORDERED: Fentanyl 250 MCG/5 ML VIAL ONE (13:21)
[2020-02-09] MEDS ORDERED: HYDROmorphone 2 MG/ML VIAL SLOW IVP PRN (15:20)
[2020-02-09] MEDS ORDERED: Ondansetron HCl/PF 4 MG/2 ML Vial IVP PRN (15:20)
[2020-02-09] MEDS ORDERED: Promethazine HCl 25 MG/ML VIAL IM PRN ×2 (15:20→16:25)
[2020-02-09] MEDS ORDERED: Promethazine HCl 25 MG/ML VIAL SLOW IVP PRN (15:20)
[2020-02-09] MEDS ORDERED: FLU VACC QS2020-21(65YR UP)/PF 240 MCG/0.7 ML SYRINGE IM ONE (15:30)
[2020-02-09] MEDS ORDERED: diphenhydrAMINE 25 MG CAP PO PRN (16:25)
[2020-02-09] MEDS ORDERED: Morphine 2 MG/ML VIAL SLOW IVP PRN (16:25)
[2020-02-09] MEDS ORDERED: HYDROcodone/Acetaminophen 7.5/325 mg Tablet PO PRN (16:25)
[2020-02-09] MEDS ORDERED: tiZANidine HCl 4 MG TAB PO PRN (16:25)
[2020-02-09] MEDS ORDERED: Fleet Enema 133 ML BOT PR PRN (16:25)
[2020-02-09] MEDS ORDERED: Ondansetron PF 4 MG/2 ML Vial IVP PRN (16:25)
[2020-02-09] MEDS ORDERED: Bisacodyl 10 MG SUPP PR PRN (16:25)
[2020-02-09] MEDS ORDERED: Milk Of Magnesia 30 ML UDCUP PO PRN (16:25)
[2020-02-09] MEDS ORDERED: Mag-Al 1200 mg/1200 mg/30 ML UDCUP PO PRN (16:25)
[2020-02-09] MEDS ORDERED: HYDROcodone/Acetaminophen 5/325 mg Tablet PO PRN (16:28)
[2020-02-09] MEDS ORDERED: Acetaminophen 325 MG TAB PO PRN (16:28)
[2020-02-09] MEDS ORDERED: Fentanyl 100 MCG/2 ML VIAL ONE (16:29)
[2020-02-09] MEDS: Sodium Chloride 0.9% 1,000 ML IV SCH (20:05)
[2020-02-09] MEDS ORDERED: Atorvastatin Calcium 10 MG TAB PO SCH (21:00)
[2020-02-09] MEDS: Gabapentin 300 MG CAP PO SCH (21:40)
[2020-02-09] MEDS: metFORMIN 500 MG TAB PO SCH (21:41)
[2020-02-09] MEDS: CEFAZOLIN 2 GM in Premix Bag 1 BAG IVPB SCH (21:41)
[2020-02-09] MEDS: Acetaminophen/Codeine 30-300mg Tablet PO PRN (21:50)
[2020-02-10] MEDS: Dexamethasone 4 MG TAB PO SCH ×2 (01:59→09:13)
[2020-02-10] MEDS: Gabapentin 300 MG CAP PO SCH ×2 (05:29→12:34)
[2020-02-10] MEDS: CEFAZOLIN 2 GM in Premix Bag 1 BAG IVPB SCH (05:29)
[2020-02-10] MEDS: Sodium Chloride 0.9% 1,000 ML IV SCH (07:06)
[2020-02-10] MEDS ORDERED: Glimepiride 2 MG TAB PO SCH (07:30)
[2020-02-10] MEDS ORDERED: Losartan 25 MG TAB PO SCH (09:00)
[2020-02-10] MEDS ORDERED: Empagliflozin 10 MG TAB PO SCH (09:00)
[2020-02-10] MEDS: metFORMIN 500 MG TAB PO SCH (09:12)
--- NOTE | 2020-02-10 11:25 | PRG ---
DATE OF SERVICE: 02/10/2020 Mr. ePters is doing well, his strength has improved. He will be discharged. Job ID: [id number]
[2020-02-10] MEDS: Acetaminophen/Codeine 30-300mg Tablet PO PRN (12:33)
[2020-02-10 14:58] VITALS: BP 132/82; TEMP 97.5
--- NOTE | 2020-02-11 10:23 | OP ---
DATE OF PROCEDURE: 02/09/2020 [employer]ILWAY EQUIPMENT OPERATOR: Joselin Ramírez PA-C PREPROCEDURE DIAGNOSES: 1. Low back with left leg pain and left knee weakness and falls. 2. Lumbar disk extrusion and stenosis. POSTPROCEDURE DIAGNOSES: 1. Low back with left leg pain and left knee weakness and falls. 2. Lumbar disk extrusion and stenosis. PROCEDURE: 1. L3-L4 laminectomy. 2. L4-L5 laminectomy. 3. Left-sided paracentral diskectomy. 4. Use of operative microscope for microdissection. 5. Left transfacet approach for lateral and far lateral diskectomy, left L4-L5 segment. DESCRIPTION OF PROCEDURE: After informed consent was obtained from the patient, the patient was brought to the OR. Proper patient, pause, and identification were carried out. He was placed under excellent general endotracheal anesthesia and positioned prone on the OR table. All appropriate points padded. Midline lumbar vijay was made from the L3-5 segments. This area was sterilely cleansed, prepared, and draped. Proper patient, pause, and identification were carried out. The wound was then opened with a combination of sharp, monopolar, and blunt dissection. The L3, L4, and L5 dorsal spines and lamina were exposed. Localization film confirmed our area of interest. We then performed L3-L4, L4-L5 laminectomies, partial facetectomies, and foraminotomies. Microscope was brought in for microdissection. Left L4-L5 paracentral diskectomy was performed along with left L4-L5 transfacet diskectomy to allow for removal of lateral and far lateral components of the disk extrusion along the L4 nerve root. Copious irrigation occurred throughout as did maximizing hemostasis. The wound was closed in anatomic layers. The patient emerged from anesthesia. Job ID: [id number]
== END 2020-02-10 14:59 | disposition home or self-care (01) | DRG 520 ==
LOC: SJJU 17:27
PROVIDERS: ADMIT Surgery; ATTEND Surgery
PROC: 0SB20ZZ Excision of Lumbar Vertebral Disc, Open Approach (ICD-10-PCS; principal; 2020-02-09)
PROC: 01NB0ZZ Release Lumbar Nerve, Open Approach (ICD-10-PCS; 2020-02-09)
DX: M48.061 Spinal stenosis, lumbar region without neurogenic claudication (principal); Z20.828 Contact with and (suspected) exposure to other viral communicable diseases; M51.26 Other intervertebral disc displacement, lumbar region; M62.81 Muscle weakness (generalized)
CPT/HCPCS: 36415; 36416; 76000; 80048; 85025; 85610; 85730; 87635; 93005; 93010; J0690; J1100; J2405; J2704; J3010; J3370; J8540; U0003

== ENCOUNTER 2020-06-24 08:21 | Day surgery (SDC) | payer MEDICARE ==
[2020-06-21 14:26] VITALS: BMI 26.3
--- NOTE | 2020-06-24 12:00 | CT ---
PROCEDURE: CT Liver Perc Biopsy PROVIDED CLINICAL HISTORY: Patient with history of colon cancer. Patient has a pancreatic tail mass and multiple hypodense hepat ic metastatic lesions. Biopsy of hepatic lesion was requested. COMPARISON: CT abdomen on 06/11/2020 TECHNIQUE: The procedure including the risks and complications were explained to the patient, and informed conse nt was obtained. Patient was placed on the CT scan table in the supine position with grid localizer overlying lateral segment left hepatic lobe. Limited noncontrasted CT scan was obtained through the l iver. An area marked overlying the lesion in the lateral segment left hepatic lobe, and the skin and subcutaneous tissues at the intended puncture site were infiltrated with buffered 1% lidocaine fo r local anesthesia. Small skin incision was made. A 17-gauge guide needle was advanced followed by axial noncontrasted CT images. Needle was then advanced with final positioning again confirmed with axial CT images. A single 18-gauge core needle biopsy specimen was obtained utilizing coaxial technique. Pathologist rev iewed the specimen and noted malignant cells within the specimen. One additional biopsy specimen was requested, and a second 18-gauge core needle biopsy specimen was obtained. The inner stylette was replaced, and the needle was removed. Hemostasis was achieved with direct pressure. Follow-up axial CT images do not demonstrate fluid at site of biopsy or findings to suggest a hematoma. Patient 's vital signs remained stable during the procedure as well as immediately postprocedure. Patient tolerated the procedure well and without immediate consultation. Patient transported to radio logy nurses holding area for further monitoring prior to discharge IMPRESSION: Technically successful CT-guided percutaneous biopsy of a hypodense mass in the lateral segment left hepatic lobe. Pathology is currently pending.
[2020-06-24 14:05] VITALS: BP 158/88; TEMP 98.3
== END 2020-06-24 14:00 | disposition home or self-care (01) ==
LOC: CT 08:21
PROVIDERS: ATTEND Internal Medicine Hematology & Oncology
PROC: 0FB23ZX Excision of Left Lobe Liver, Percutaneous Approach, Diagnostic (ICD-10-PCS; principal; 2020-06-24)
DX: C78.7 Secondary malignant neoplasm of liver and intrahepatic bile duct (principal); C80.1 Malignant (primary) neoplasm, unspecified; K86.89 Other specified diseases of pancreas; E11.9 Type 2 diabetes mellitus without complications; I10 Essential (primary) hypertension; E78.5 Hyperlipidemia, unspecified; K21.9 Gastro-esophageal reflux disease without esophagitis; Z85.038 Personal history of other malignant neoplasm of large intestine; Z87.891 Personal history of nicotine dependence; Z79.82 Long term (current) use of aspirin; Z79.84 Long term (current) use of oral hypoglycemic drugs; Z79.899 Other long term (current) drug therapy; Z90.49 Acquired absence of other specified parts of digestive tract
CPT/HCPCS: 47000; 77002; 88307; 88333; 88341; 88342

== ENCOUNTER 2020-07-15 10:11 | Inpatient (IN) | payer MEDICARE ==
[2020-07-15] MEDS ORDERED: Norepinephrine 4 MG/4 ML VIAL ONE (10:21)
[2020-07-15 10:37] LABS: #Eosinphils 0.1 thou/uL (0.0-0.7); #Lymphocytes 2.2 thou/uL (1.20-3.40); #Monocytes 1.2 thou/uL (0.11-0.59); #Neutrophils 12.8 thou/uL (1.40-6.50); %Basophils 0.3 % (0.0-1.0); %Eosinophils 0.4 % (0.0-10.0); %Lymphocytes 13.3 % (21.0-51.0); %Monocytes 7.4 % (0.0-10.0); %Neutrophils 78.6 % (42.0-75.0); Hemoglobin 10.8 g/dL (14.0-18.0); Mean Corpuscular HGB CONC 31.3 g/dL (32.0-36.0); Mean Corpuscular Hemoglobin 32.2 pg (27.0-31.0); Platelet Count 221 thou/uL (130-400); RBC Distribution Width 18.1 % (11.5-14.5); Red Blood Cell (RBC) Count 3.35 mill/uL (4.70-6.10); White Blood Cell (WBC) Count 16.3 thou/uL (4.8-10.8)
[2020-07-15] MEDS ORDERED: Cefepime 2 GM VIAL ONE (10:38)
[2020-07-15] MEDS ORDERED: Vancomycin 1 GM/200 ML BAG ONE (10:38)
[2020-07-15 10:40] LABS: INR-International Normal Ratio 1.8; PTT 38.3 sec (22.9-36.1); Prothrombin Time 21.1 sec (12.0-14.7)
[2020-07-15 10:55] LABS: ALT (SGPT) 85 U/L (8-55); AST (SGOT) 182 U/L (5-34); Albumin 1.7 g/dL (3.4-4.8); Alkaline Phosphatase 932 U/L (40-110); Anion Gap 15 mmol/L (10-20); BUN (Urea Nitrogen) 34 mg/dL (8.4-25.7); Bilirubin, Total 16.6 mg/dL (0.2-1.2); Calc. Creatinine Clearance 0 mL/min (70-130); Calcium 8.9 mg/dL (7.8-10.44); Carbon Dioxide 19 mmol/L (23-31); Chloride 107 mmol/L (98-107); Globulin 2.4 g/dL (2.4-3.5); Potassium 4.5 mmol/L (3.5-5.1); Protein, Total 4.1 g/dL (5.8-8.1); Sodium 136 mmol/L (136-145)
[2020-07-15 11:01] LABS: Glucose 49 mg/dL (83-110)
[2020-07-15] MEDS ORDERED: Dextrose 50% Abboject 50 ML SYRINGE ONE (11:19)
[2020-07-15 11:37] LABS: Bilirubin 3+ (Negative); Blood, Urine Negative (Negative); Clarity Turbid (Clear); Glucose, Urine (Dipstick) Normal (Negative); Ketone, Urine Negative (Negative); Leukocyte Negative Leu/uL (Negative); Nitrite Negative (Negative); Protein, Urine (Dipstick) 10 mg/dL (Neg-Trace); Specific Gravity, Urine 1.018 (1.002-1.036); pH, Urine 5.5 (5.0-9.0)
[2020-07-15 13:34] LABS: SARS-CoV-2 NAA Rapid Test Not Detected (NotDetected)
[2020-07-15] MEDS ORDERED: Hydrocortisone Sod Succ/PF 100 mg/2 ml Vial ONE (14:30)
[2020-07-15 15:16] LABS: Lactic Acid 1.7 mmol/L (0.5-2.2)
[2020-07-15] MEDS ORDERED: Norepinephrine 8 MG/0.9% NS 250 ML IVPB SCH (15:30)
[2020-07-15] MEDS ORDERED: Sodium Chloride 0.9% 1,000 ML IV SCH (15:30)
[2020-07-15] MEDS ORDERED: Dextrose 5% in Water 1,000 ML IV PRN (15:55)
[2020-07-15] MEDS ORDERED: Dextrose 50% Abboject 50 ML SYRINGE SLOW IVP PRN (15:55)
[2020-07-15] MEDS ORDERED: Calcium Carbonate 500 MG ChewTAB PO PRN (15:57)
[2020-07-15] MEDS ORDERED: Senokot S 8.6-50 MG TAB PO PRN (15:57)
[2020-07-15] MEDS ORDERED: Ondansetron ODT 4 MG TAB PO PRN (15:57)
[2020-07-15] MEDS ORDERED: Ondansetron PF 4 MG/2 ML Vial IVP PRN (15:57)
[2020-07-15 16:25] VITALS: BMI 26.1
[2020-07-15 16:34] VITALS: BP 120/75
[2020-07-15] MEDS: Cefepime 1 GM in Sodium Chloride 0.9% 100 ML IVPB SCH (17:08)
[2020-07-15] MEDS: Dextrose 5 % And 0.9 % NaCl 1,000 ML IV SCH (17:09)
[2020-07-15] MEDS: Hydrocortisone Sod Succ/PF 100 mg/2 ml Vial IVP SCH (21:17)
[2020-07-16] MEDS: Dextrose 5 % And 0.9 % NaCl 1,000 ML IV SCH ×2 (01:42→10:52)
[2020-07-16] MEDS: Cefepime 1 GM in Sodium Chloride 0.9% 100 ML IVPB SCH (04:05)
[2020-07-16 05:07] LABS: ALT (SGPT) 89 U/L (8-55); AST (SGOT) 181 U/L (5-34); Albumin 2.3 g/dL (3.4-4.8); Alkaline Phosphatase 971 U/L (40-110); Anion Gap 13 mmol/L (10-20); BUN (Urea Nitrogen) 34 mg/dL (8.4-25.7); Bilirubin, Total 18.9 mg/dL (0.2-1.2); Calc. Creatinine Clearance 80 mL/min (70-130); Calcium 9.2 mg/dL (7.8-10.44); Carbon Dioxide 18 mmol/L (23-31); Chloride 109 mmol/L (98-107); Globulin 2.7 g/dL (2.4-3.5); Glucose 246 mg/dL (83-110); Potassium 4.2 mmol/L (3.5-5.1); Sodium 136 mmol/L (136-145)
[2020-07-16] MEDS: Hydrocortisone Sod Succ/PF 100 mg/2 ml Vial IVP SCH (05:37)
[2020-07-16 06:17] LABS: Band 11 % (5-11); Hemoglobin 12.3 g/dL (14.0-18.0); Lymphocytes 2 % (21-51); MDiff Complete? YES; Mean Corpuscular Hemoglobin 32.4 pg (27.0-31.0); Mean Platelet Volume 9.1 fL (7.4-10.4); Monocytes 5 % (0-10); Neutrophil 82 % (42-75); Platelet Count 299 thou/uL (130-400); RBC Distribution Width 18.8 % (11.5-14.5); Red Blood Cell (RBC) Count 3.78 mill/uL (4.70-6.10)
[2020-07-16] MEDS ORDERED: Pantoprazole 40 MG VIAL IVP SCH (09:00)
[2020-07-16 11:02] VITALS: TEMP 97.7
== END 2020-07-16 13:50 | disposition hospice, home (50) | DRG 871 ==
LOC: ERS 10:11 → CCU 13:45
PROVIDERS: ADMIT Internal Medicine; ATTEND Family Medicine
PROC: 3E033XZ Introduction of Vasopressor into Peripheral Vein, Percutaneous Approach (ICD-10-PCS; principal; 2020-07-15)
DX: A41.9 Sepsis, unspecified organism (principal); R65.21 Severe sepsis with septic shock; J96.01 Acute respiratory failure with hypoxia; G92 Toxic encephalopathy; R18.0 Malignant ascites; E87.2 Acidosis; N17.9 Acute kidney failure, unspecified; C78.89 Secondary malignant neoplasm of other digestive organs; Z20.822 Contact with and (suspected) exposure to COVID-19; Z66 Do not resuscitate; E78.5 Hyperlipidemia, unspecified; E78.00 Pure hypercholesterolemia, unspecified; I10 Essential (primary) hypertension; I27.20 Pulmonary hypertension, unspecified; E11.649 Type 2 diabetes mellitus with hypoglycemia without coma; D64.9 Anemia, unspecified; F17.220 Nicotine dependence, chewing tobacco, uncomplicated; Z90.49 Acquired absence of other specified parts of digestive tract; Z85.038 Personal history of other malignant neoplasm of large intestine; Z79.899 Other long term (current) drug therapy
CPT/HCPCS: 0240U; 36415; 36416; 36556; 51702; 70450; 71045; 74176; 80053; 81003; 82140; 82533; 83605; 85025; 85610; 85730; 87040; 87086; 87149; 93005; 94760; 96365; 96366; 96368; 96375; C9113; J0692; J1720; J3370; J3490; P9045